=== PATIENT | male | born 1960 | race Caucasian/White ===

== ENCOUNTER 2024-04-04 17:17 | Emergency (ER) | payer OTHER ==
[2024-04-04] MEDS ORDERED: Aspirin Chewable 81 MG TAB ONE (18:15)
[2024-04-04 18:30] LABS: INR-International Normal Ratio 0.8; Prothrombin Time 11.3 sec (12.0-14.7)
[2024-04-04 18:31] LABS: PTT 24.2 sec (22.9-36.1)
[2024-04-04 18:38] LABS: ALT (SGPT) 22 U/L (8-55); AST (SGOT) 13 U/L (5-34); Albumin 4.1 g/dL (3.4-4.8); Alkaline Phosphatase 63 U/L (40-110); Anion Gap 16 mmol/L (10-20); BUN (Urea Nitrogen) 19 mg/dL (8.4-25.7); Bilirubin, Total 0.4 mg/dL (0.2-1.2); Calc. Creatinine Clearance 0 mL/min (70-130); Calcium 9.3 mg/dL (7.8-10.44); Carbon Dioxide 26 mmol/L (23-31); Chloride 99 mmol/L (98-107); Estimated GFR 100; Globulin 3.2 g/dL (2.4-3.5); Glucose 338 mg/dL (80-115); Potassium 4.2 mmol/L (3.5-5.1); Protein, Total 7.3 g/dL (5.8-8.1); Sodium 137 mmol/L (136-145)
[2024-04-04 18:41] LABS: Troponin I Less than 0.010 ng/mL (< 0.028)
[2024-04-04 18:49] LABS: Band 1 % (5-11); Eosinophils 7 % (0-10); Hematocrit 51.3 % (42.0-52.0); Hemoglobin 16.3 g/dL (14.0-18.0); Lymphocytes 9 % (21-51); MDiff Complete? YES; Manual Diff?? YES; Mean Corpuscular HGB CONC 31.7 g/dL (32.0-36.0); Mean Corpuscular Hemoglobin 31.1 pg (27.0-31.0); Mean Platelet Volume 8.4 fL (7.4-10.4); Monocytes 4 % (0-10); Neutrophil 67 % (42-75); Platelet Adequacy Comment Appears Adequate; Platelet Count 284 10x3/uL (130-400); RBC Distribution Width 12.4 % (11.5-14.5); RBC Morph Comment Within Normal Limits; Reactive Lymphocytes 12 % (0-10); Red Blood Cell (RBC) Count 5.23 mill/uL (4.70-6.10); White Blood Cell (WBC) Count 7.1 10x3/uL (4.8-10.8)
== END 2024-04-04 19:20 | disposition left against medical advice (07) ==
LOC: MADERS 17:17
DX: I16.1 Hypertensive emergency (principal); E11.65 Type 2 diabetes mellitus with hyperglycemia; I45.10 Unspecified right bundle-branch block
CPT/HCPCS: 70450; 71045; 80053; 84484; 85025; 85610; 85730; 93005; 94760